=== PATIENT | male | born 1970 | race Caucasian/White ===

== ENCOUNTER 2018-08-27 18:11 | Emergency (ER) | payer OTHER ==
[~2018-08-27] VITALS: Ht 185.4 cm; Wt 128.8 kg
[~2018-08-27 18:11] MED LIST: ASPIR-LOW81 MG PO; CATAPRES0.2 MG PO; HUMULIN R100 UNIT/1 SUB-Q; HYDROCHLOROTHIA25 MG PO; ISOSORBIDE MONO30 MG PO; LANTUS100 UNITS/ SUB-Q; LIPITOR80 MG GT; METFORMIN HCL1000 MG PO; NITROGLYCERIN0.4 MG SL; NORVASC10 MG PO; PROZAC40 MG PO; ROPINIROLE HCL2 MG PO; ZYRTEC10 M3 PO
[2018-08-27] MEDS ORDERED: COREG6.25 MG PO (18:26)
--- NOTE | 2018-08-28 17:12 | EKG ---
[facility] [address] [place] [address] Signed Normal sinus rhythm Left posterior fascicular block Abnormal ECG When compared with ECG of 28-JUN-2018 07:48, Left posterior fascicular block is now present Confirmed by FELIBERTO ESPINOZA MD ([id number]) on 08/28/2018 5:12:42 PM Electronically Signed By: FELIBERTO ESPINOZA MD 08/28/18 1712 PATIENT NAME: KERVINKVNG Electrocardiogram DATE OF : 66 PHYSICIAN: FELIBERTO ESPINOZA MD REPORT #: [id number] REPORT IS CONFIDENTIAL AND NOT TO BE RELEASED WITHOUT AUTHORIZATION
== END 2018-08-27 22:00 | disposition home or self-care (01) ==
LOC: ED 18:11
DX: R07.89 Other chest pain (principal); Z91.14 Patient's other noncompliance with medication regimen; E11.9 Type 2 diabetes mellitus without complications; I10 Essential (primary) hypertension; Z87.891 Personal history of nicotine dependence; Z79.4 Long term (current) use of insulin; Z79.899 Other long term (current) drug therapy; Z79.82 Long term (current) use of aspirin
CPT/HCPCS: 71046; 80053; 83690; 84484; 85025; 93005; 93010; 99285-25

== ENCOUNTER 2018-09-27 21:24 | Emergency (ER) | payer OTHER ==
[~2018-09-27] VITALS: Ht 185.4 cm; Wt 131.5 kg
[~2018-09-27 21:24] MED LIST changes: +COREG6.25 MG PO
[2018-09-27] MEDS ORDERED: NITROSTAT0.4 MG SL (21:39)
[2018-09-28] MEDS ORDERED: CLOZAPINE100 MG PO (01:00)
[2018-09-28] MEDS ORDERED: ATENOLOL50 MG PO (01:00)
[2018-09-28] MEDS ORDERED: CHLORTHALIDONE25 MG PO (01:01)
[2018-09-28] MEDS ORDERED: FENOFIBRATE160 M1 PO (01:02)
[2018-09-28] MEDS ORDERED: LOSARTAN POTASS50 MG PO (01:02)
[2018-09-28] MEDS ORDERED: FLUVOXAMINE MA100 MG PO (01:03)
[2018-09-28] MEDS ORDERED: ARIPIPRAZOLE10 MG PO (01:03)
[2018-09-28] MEDS ORDERED: METFORMIN HCL1000 MG PO ×2 (01:04→01:10)
[2018-09-28] MEDS ORDERED: RANITIDINE HCL75 MG PO ×2 (01:05→01:11)
[2018-09-28] MEDS ORDERED: TRAZODONE HCL100 MG PO (01:06)
[2018-09-28] MEDS ORDERED: LAMOTRIGINE200 MG PO (01:06)
[2018-09-28] MEDS ORDERED: ARIPIPRAZOLE20 MG PO (01:07)
[2018-09-28] MEDS ORDERED: MIRTAZAPINE15 MG PO (01:07)
[2018-09-28] MEDS ORDERED: CLOZAPINE200 MG PO (01:10)
[2018-09-28] MEDS ORDERED: NOVOLOG FL100 UNIT/1 SUB-Q (01:13)
[2018-09-28] MEDS ORDERED: TRULICITY1.5 MG/0.5 SUB-Q (01:14)
--- NOTE | 2018-09-28 13:56 | EKG ---
[facility] [address] [place] [address] Signed Normal sinus rhythm Rightward axis Abnormal QRS-T angle, consider primary T wave abnormality Abnormal ECG When compared with ECG of 27-AUG-2018 18:17, No significant change was found Confirmed by FELIBERTO ESPINOZA MD ([id number]) on 09/28/2018 1:56:41 PM Electronically Signed By: FELIBERTO ESPINOZA MD 09/28/18 1356 PATIENT NAME: KVNG GALEANA JAYDEN Electrocardiogram DATE OF : 66 PHYSICIAN: FELIBERTO ESPINOZA MD REPORT #: [id number] REPORT IS CONFIDENTIAL AND NOT TO BE RELEASED WITHOUT AUTHORIZATION
== END 2018-09-28 01:32 | disposition home or self-care (01) ==
LOC: ED 21:24
DX: I10 Essential (primary) hypertension (principal); E11.40 Type 2 diabetes mellitus with diabetic neuropathy, unspecified; Z95.1 Presence of aortocoronary bypass graft; Z87.891 Personal history of nicotine dependence; Z79.82 Long term (current) use of aspirin; Z79.899 Other long term (current) drug therapy; Z79.4 Long term (current) use of insulin
CPT/HCPCS: 71045; 71275; 80053; 84484; 85025; 93005; 93010; 99285-25; Q9967